=== PATIENT | male | born 1970 | race Caucasian/White ===

== ENCOUNTER 2020-03-03 09:52 | Emergency (ER) | payer SELFPAY ==
[~2020-03-03] VITALS: Ht 167.6 cm; Wt 95.5 kg
[2020-03-03 11:17] VITALS: BP 174/90; PULSE 72; TEMP 98.3
== END 2020-03-03 11:17 | disposition home or self-care (01) ==
LOC: COL.ER 09:52
DX: S06.0X0A Concussion without loss of consciousness, initial encounter (principal); S00.83XA Contusion of other part of head, initial encounter; Z88.0 Allergy status to penicillin; W19.XXXA Unspecified fall, initial encounter

== ENCOUNTER 2020-05-01 08:06 | Outpatient (RCR) | payer OTHER | END 2020-05-05 | disposition home or self-care (01) | LOC: WSOH | DX: S00.33XD Contusion of nose, subsequent encounter (principal); S02.2XXD Fracture of nasal bones, subsequent encounter for fracture with routine healing; S06.0X0D Concussion without loss of consciousness, subsequent encounter; Z96.652 Presence of left artificial knee joint; Y99.0 Civilian activity done for income or pay ==

== ENCOUNTER 2020-07-11 15:17 | Outpatient (RCR) | payer OTHER | END 2020-10-01 | disposition home or self-care (01) | LOC: WSOH | DX: S61.213A Laceration without foreign body of left middle finger without damage to nail, initial encounter (principal); Z88.0 Allergy status to penicillin; Z98.890 Other specified postprocedural states; Y99.0 Civilian activity done for income or pay ==

== ENCOUNTER 2020-12-18 13:39 | Emergency (ER) | payer OTHER ==
[~2020-12-18] VITALS: Ht 167.6 cm; Wt 97.7 kg
[2020-12-18 17:00] VITALS: BP 148/64; PULSE 66; TEMP 97.2
== END 2020-12-18 17:00 | disposition home or self-care (01) ==
LOC: COL.ER 13:39
DX: S06.0X0A Concussion without loss of consciousness, initial encounter (principal); S01.01XA Laceration without foreign body of scalp, initial encounter; W20.8XXA Other cause of strike by thrown, projected or falling object, initial encounter; Y92.59 Other trade areas as the place of occurrence of the external cause; Y99.0 Civilian activity done for income or pay

== ENCOUNTER 2020-12-29 14:19 | Outpatient (RCR) | payer OTHER | END 2021-03-24 | disposition home or self-care (01) | LOC: WSOH | DX: S01.81XA Laceration without foreign body of other part of head, initial encounter (principal); F07.81 Postconcussional syndrome; Z96.652 Presence of left artificial knee joint; Y99.0 Civilian activity done for income or pay ==